=== PATIENT | male | born 1960 | race African-American/Black ===

== ENCOUNTER 2023-06-15 15:22 | Emergency (ER) | payer MEDICARE, OTHER ==
[2023-06-15] MEDS ORDERED: Lidocaine 1% PF 5 ML VIAL ONE ×2 (16:20→18:46)
[2023-06-15] MEDS ORDERED: Acetaminophen 500 MG TAB ONE (18:46)
[2023-06-15] MEDS ORDERED: Ibuprofen 800 MG TAB ONE (18:46)
[2023-06-15] MEDS ORDERED: cefTRIAXone (ROCEPHIN) 1 GM VIAL ONE (18:46)
== END 2023-06-15 19:08 | disposition home or self-care (01) ==
LOC: ERS 15:22
DX: M65.071 Abscess of tendon sheath, right ankle and foot (principal); I10 Essential (primary) hypertension; F17.210 Nicotine dependence, cigarettes, uncomplicated; Z79.899 Other long term (current) drug therapy
CPT/HCPCS: 10060; 87070; 87205; 96372; J0696